=== PATIENT | female | born 1955 | race Caucasian/White ===

== ENCOUNTER 2017-03-28 07:53 | Day surgery (SDC) | payer BC ==
[2017-03-23 14:51] VITALS: BMI 18.4
[2017-03-28] MEDS ORDERED: PROPOFOL 20 ML ONE ×2 (08:07)
[2017-03-28] MEDS ORDERED: LIDOCAINE HCL/PF 2% SDV 5ML VIAL ONE (08:08)
[2017-03-28 10:14] VITALS: BP 110/65; PULSE 70; TEMP 98.1
== END 2017-03-28 10:15 | disposition home or self-care (01) ==
LOC: FASU-ENDO 07:53
PROVIDERS: ATTEND Internal Medicine Gastroenterology
PROC: 0DJD8ZZ Inspection of Lower Intestinal Tract, Via Natural or Artificial Opening Endoscopic (ICD-10-PCS; principal; 2017-03-28 09:23)
DX: Z12.11 Encounter for screening for malignant neoplasm of colon (principal)

== ENCOUNTER 2020-11-21 09:59 | Emergency (ER) | payer BC ==
[2020-11-21 10:06] VITALS: BP 154/89; PULSE 81; TEMP 97.8; BMI 24.7
[2020-11-21] MEDS ORDERED: ACETAMINOPHEN 500 MG TABLET (FP) PO ONE (10:13)
[2020-11-21] MEDS ORDERED: ACETAMINOPHEN 325 MG TABLET (FP) ONE (10:17)
== END 2020-11-21 11:13 | disposition home or self-care (01) ==
LOC: FER 09:59
PROC: 2W3DX1Z Immobilization of Left Lower Arm using Splint (ICD-10-PCS; principal; 2020-11-21)
DX: S52.502A Unspecified fracture of the lower end of left radius, initial encounter for closed fracture (principal)
CPT/HCPCS: 73110-TC-LT-FY; 73130-TC-LT-FY; 99283-25

== ENCOUNTER 2020-11-24 12:56 | Inpatient (IN) | payer BC, OTHER ==
[2020-11-24] MEDS ORDERED: ONDANSETRON 4 MG/2 ML VIAL IVPUSH ONE (13:11)
[2020-11-24] MEDS ORDERED: SODIUM CHLORIDE 1,000 ML IV STA (13:11)
[2020-11-24] MEDS ORDERED: AZTREONAM 1 GM in DEXTROSE 5%-WATER - 50 ML IVPB ONE (13:18)
[2020-11-24] MEDS ORDERED: ONDANSETRON 4 MG/2 ML VIAL ONE (13:20)
[2020-11-24 13:54] LABS: BASO % 1.5 % (0-2.0); EOS % 0.5 % (0-4.5); HEMATOCRIT 36.7 % (32.4-45.2); HEMOGLOBIN 12.2 GM/dl (10.7-15.3); LYMPH % 9.3 % (8-40); MCH 31.4 pg (25.7-33.7); MCHC 33.3 g/dl (32.0-36.0); MEAN CELL VOLUME 94.3 fl (80-96); MEAN PLT VOLUME 8.8 fl (7.5-11.1); MONO % 8.1 % (3.8-10.2); NEUT % 80.6 % (42.8-82.8); PLATELET COUNT 239 10^3/uL (134-434); WHITE BLOOD COUNT 4.6 K/mm3 (4.0-10.8)
[2020-11-24 14:07] LABS: ALBUMIN 3.9 g/dl (3.4-5.0); ALK PHOS 84 U/L (45-117); ANION GAP 12 MMOL/L (8-16); BILIRUBIN,TOTAL 0.8 mg/dl (0.2-1); CALCIUM 8.5 mg/dl (8.5-10); CHLORIDE 88 mmol/L (98-107); CO2 17 mmol/L (21-32); CREATININE 0.9 mg/dl (0.55-1.3); GLUCOSE,RANDOM 93 mg/dl (74-106); SGOT/AST 32 U/L (15-37); SGPT/ALT 21 U/L (13-61); TOT PROT 6.6 g/dl (6.4-8.2)
[2020-11-24 14:10] LABS: SODIUM 117 mmol/L (136-145)
[2020-11-24 14:52] LABS: EPITHELIAL CELLS MANY /hpf
[2020-11-24] MEDS ORDERED: SODIUM CHLORIDE 1,000 ML IV SCH ×2 (15:00→16:57)
[2020-11-24 15:22] LABS: CREATININE, URINE RANDOM 171.5 mg/dL
[2020-11-24 15:23] LABS: LIPASE 103 U/L (73-393)
[2020-11-24 15:26] LABS: ALBUMIN 3.7 g/dl (3.4-5.0); CALCIUM 8.4 mg/dl (8.5-10); CREATININE 0.9 mg/dl (0.55-1.3); TOT PROT 6.1 g/dl (6.4-8.2)
[2020-11-24] MEDS ORDERED: SODIUM BICARBONATE 8.4% 50 MEQ/50 ML DISP.SYRIN IVPUSH ONE (16:57)
[2020-11-24 17:12] LABS: OSMOLALITY,SERUM 249 mosm/kg (278-305)
[2020-11-24] MEDS ORDERED: SODIUM BICARBONATE 8.4% 50 MEQ/50 ML VIAL ONE (17:46)
[2020-11-24] MEDS ORDERED: metoPROLOL SUCCINATE 25 MG TAB.SR.24H (FP) ONE (17:46)
[2020-11-24] MEDS ORDERED: amLODIPine BESYLATE 5 MG TABLET (FP) ONE (17:46)
[2020-11-24] MEDS: amLODIPine BESYLATE 2.5 MG TABLET (FP) PO SCH (17:55)
[2020-11-24] MEDS: metoPROLOL SUCCINATE 25 MG TAB.SR.24H (FP) PO SCH (17:55)
[2020-11-24] MEDS ORDERED: ACETAMINOPHEN 325 MG TABLET (FP) ONE (18:35)
[2020-11-24] MEDS ORDERED: ACETAMINOPHEN 325 MG TABLET (FP) PO ONE (18:36)
[2020-11-24 20:20] LABS: CREATININE 0.9 mg/dl (0.55-1.3)
[2020-11-24] MEDS ORDERED: DEXTROSE 5%-WATER - 1,000 ML IV SCH (21:00)
[2020-11-24] MEDS ORDERED: SODIUM BICARBONATE 650 MG TABLET PO SCH (22:00)
[2020-11-24] MEDS: AZTREONAM 2 GM in DEXTROSE 5%-WATER 100 ML IVPB SCH (22:40)
[2020-11-24 23:02] VITALS: BMI 19.5
[2020-11-25] MEDS: AZTREONAM 2 GM in DEXTROSE 5%-WATER 100 ML IVPB SCH ×4 (05:59→15:11)
[2020-11-25 07:54] LABS: HEMATOCRIT 35.6 % (32.4-45.2); HEMOGLOBIN 11.9 GM/dl (10.7-15.3); MCH 31.9 pg (25.7-33.7); MCHC 33.5 g/dl (32.0-36.0); MEAN CELL VOLUME 95.4 fl (80-96); MEAN PLT VOLUME 9.1 fl (7.5-11.1); PLATELET COUNT 200 10^3/uL (134-434); RBC 3.73 M/mm3 (3.60-5.2); RDW 12.6 % (11.6-15.6); WHITE BLOOD COUNT 2.9 K/mm3 (4.0-10.8)
[2020-11-25 08:05] LABS: ADD RBC MORPHOLOGY YES
[2020-11-25 08:13] LABS: ALBUMIN 3.4 g/dl (3.4-5.0); BILIRUBIN,TOTAL 0.6 mg/dl (0.2-1); CALCIUM 8.4 mg/dl (8.5-10); CREATININE 0.8 mg/dl (0.55-1.3); TOT PROT 5.8 g/dl (6.4-8.2)
[2020-11-25 09:28] LABS: PLATELET ESTIMATE ADEQUATE
[2020-11-25] MEDS ORDERED: DEXTROSE 5%-WATER - 1,000 ML IV SCH ×4 (09:29→21:59)
[2020-11-25] MEDS ORDERED: amLODIPine BESYLATE 2.5 MG TABLET (FP) PO SCH ×2 (10:32→18:00)
[2020-11-25] MEDS ORDERED: metoPROLOL SUCCINATE 25 MG TAB.SR.24H (FP) PO SCH ×2 (10:32→18:00)
[2020-11-25] MEDS: amLODIPine BESYLATE 2.5 MG TABLET (FP) PO SCH (10:35)
[2020-11-25] MEDS: metoPROLOL SUCCINATE 25 MG TAB.SR.24H (FP) PO SCH (10:35)
[2020-11-25] MEDS: ACETAMINOPHEN 325 MG TABLET (FP) PO PRN ×2 (11:50→16:59)
[2020-11-25] MEDS: ENOXAPARIN NA (PORCINE) 40 MG/0.4 ML DISP.SYRIN SQ SCH ×2 (11:50→14:05)
[2020-11-25] MEDS ORDERED: PT OWN MED DRAWER 7, Y5N ONE (13:56)
[2020-11-25 16:00] LABS: CALCIUM 8.5 mg/dl (8.5-10); CREATININE 0.8 mg/dl (0.55-1.3)
[2020-11-25] MEDS ORDERED: ONDANSETRON 4 MG/2 ML VIAL IVPUSH PRN (16:59)
[2020-11-26] MEDS: ACETAMINOPHEN 325 MG TABLET (FP) PO PRN (00:05)
[2020-11-26] MEDS ORDERED: AZTREONAM 1 GM VIAL (RESTRICTED TO ID) ONE ×2 (00:14→09:11)
[2020-11-26] MEDS ORDERED: DEXTROSE 5%-WATER - 50 ML IVPB ONE ×2 (00:14→09:11)
[2020-11-26] MEDS: AZTREONAM 1 GM in DEXTROSE 5%-WATER - 50 ML IVPB SCH ×2 (01:32→09:38)
[2020-11-26 08:23] LABS: BASO % 1.4 % (0-2.0); EOS % 3.9 % (0-4.5); HEMATOCRIT 36.3 % (32.4-45.2); HEMOGLOBIN 11.9 GM/dl (10.7-15.3); MCH 31.3 pg (25.7-33.7); MCHC 32.8 g/dl (32.0-36.0); MEAN CELL VOLUME 95.5 fl (80-96); MEAN PLT VOLUME 8.9 fl (7.5-11.1); NEUT % 52.7 % (42.8-82.8); PLATELET COUNT 208 10^3/uL (134-434); RBC 3.79 M/mm3 (3.60-5.2); WHITE BLOOD COUNT 2.7 K/mm3 (4.0-10.8)
[2020-11-26 08:38] LABS: ALBUMIN 3.4 g/dl (3.4-5.0); BILIRUBIN,TOTAL 0.5 mg/dl (0.2-1); CALCIUM 8.6 mg/dl (8.5-10); CREATININE 0.7 mg/dl (0.55-1.3); TOT PROT 5.7 g/dl (6.4-8.2)
[2020-11-26] MEDS: ENOXAPARIN NA (PORCINE) 40 MG/0.4 ML DISP.SYRIN SQ SCH (09:39)
[2020-11-26 14:37] VITALS: BP 116/61; PULSE 80; TEMP 98.5
== END 2020-11-26 16:17 | disposition home or self-care (01) | DRG 391 ==
LOC: FER 12:56 → FM/S 14:48
PROVIDERS: ADMIT Internal Medicine Geriatric Medicine; ATTEND Nurse Practitioner Acute Care
DX: K57.92 Diverticulitis of intestine, part unspecified, without perforation or abscess without bleeding (principal); G93.41 Metabolic encephalopathy; E87.1 Hypo-osmolality and hyponatremia; S52.502A Unspecified fracture of the lower end of left radius, initial encounter for closed fracture; I51.81 Takotsubo syndrome; E87.2 Acidosis; I10 Essential (primary) hypertension; W18.11XA Fall from or off toilet without subsequent striking against object, initial encounter; Y92.098 Other place in other non-institutional residence as the place of occurrence of the external cause
CPT/HCPCS: 36415; 80048; 80053; 81003; 81015; 82436; 82570; 83605; 83690; 83735; 83930; 83935; 84133; 84156; 84300; 84484; 85025; 93005; 97116-GP; 97161-GP; 99285-25; C9803; U0003; U0005

== ENCOUNTER 2020-12-03 06:13 | Day surgery (SDC) | payer BC ==
[2020-12-01 17:09] VITALS: BMI 19.9
[2020-12-03] MEDS ORDERED: BUPIVACAINE HCL 50 ML ONE (07:19)
[2020-12-03] MEDS ORDERED: LIDOCAINE HCL 2% (20ML MULTI-DOSE VIAL) ONE (07:36)
[2020-12-03] MEDS ORDERED: ROPIVACAINE HCL 0.5% 30ML VIAL ONE (07:40)
[2020-12-03] MEDS ORDERED: MIDAZOLAM HCL 2 MG/2 ML SINGLE DOSE VIAL ONE (07:40)
[2020-12-03] MEDS ORDERED: PROPOFOL 20 ML ONE ×4 (07:46)
[2020-12-03 10:17] VITALS: TEMP 97.7
[2020-12-03 10:20] VITALS: BP 125/73; PULSE 72
[2020-12-03] MEDS ORDERED: GUM MASTIC/STORAX/MSAL/ALCOHOL 1 DRP DROPSBTL MC ONE (10:40)
[2020-12-03] MEDS ORDERED: ONDANSETRON 4 MG/2 ML VIAL IVPUSH PRN (11:37)
[2020-12-03] MEDS ORDERED: oxyCODONE HCL 5 MG TABLET PO PRN (11:37)
[2020-12-03] MEDS ORDERED: LACTATED RINGERS SOLUTION 1,000 ML IV SCH (11:45)
== END 2020-12-03 10:20 | disposition home or self-care (01) ==
LOC: FASU 06:13
PROVIDERS: ATTEND Orthopaedic Surgery Hand Surgery
PROC: 0LN60ZZ Release Left Lower Arm and Wrist Tendon, Open Approach (ICD-10-PCS; 2020-12-03)
PROC: 0PSJ04Z Reposition Left Radius with Internal Fixation Device, Open Approach (ICD-10-PCS; principal; 2020-12-03 08:31)
DX: S52.572A Other intraarticular fracture of lower end of left radius, initial encounter for closed fracture (principal); X58.XXXA Exposure to other specified factors, initial encounter; Y93.9 Activity, unspecified; Y92.9 Unspecified place or not applicable
CPT/HCPCS: 25290; 25609; C1713; 76000-TC-FY

== ENCOUNTER 2021-08-25 21:07 | Observation (INO) | payer BC, OTHER ==
[2021-08-25 22:33] LABS: ALBUMIN 3.7 g/dl (3.4-5.0); BILIRUBIN,TOTAL 0.6 mg/dl (0.2-1); CALCIUM 9.6 mg/dl (8.5-10); CREATININE 0.8 mg/dl (0.55-1.3); TOT PROT 6.1 g/dl (6.4-8.2)
[2021-08-26 00:11] LABS: BASO % 0.7 % (0-2.0); EOS % 6.5 % (0-4.5); HEMATOCRIT 37.2 % (32.4-45.2); HEMOGLOBIN 12.7 GM/dL (10.7-15.3); LYMPH % 23.1 % (8-40); MCH 32.2 pg (25.7-33.7); MEAN CELL VOLUME 94.7 fl (80-96); MONO % 7.7 % (3.8-10.2); PLATELET COUNT 192 10^3/uL (134-434); RBC 3.92 M/mm3 (3.60-5.2); RDW 12.2 % (11.6-15.6); WHITE BLOOD COUNT 6.2 K/mm3 (4.0-10.0)
[2021-08-26 00:23] LABS: N-TERMINAL BNP 1494.8 pg/ml (5-125)
[2021-08-26] MEDS ORDERED: ASPIRIN 325 MG TABLET PO ONE (00:36)
[2021-08-26] MEDS ORDERED: ASPIRIN 325 MG TABLET ONE (01:07)
[2021-08-26 02:43] VITALS: BMI 21.7
[2021-08-26 07:42] LABS: INR 1.03 (0.83-1.09); PROTHROMBIN TIME (PATIENT) 11.8 SEC (9.7-13.0)
[2021-08-26 07:44] LABS: ACTIVATED PTT 29.6 SECONDS (25.2-36.5)
[2021-08-26 08:03] LABS: CREATININE 0.7 mg/dl (0.55-1.3); PHOSPHOROUS 4.3 mg/dl (2.5-4.9)
[2021-08-26] MEDS ORDERED: CLOPIDOGREL BISULFATE 300 MG TABLET PO ONE (10:00)
[2021-08-26] MEDS ORDERED: amLODIPine BESYLATE 2.5 MG TABLET (FP) PO SCH (10:00)
[2021-08-26] MEDS ORDERED: ENOXAPARIN NA (PORCINE) 40 MG/0.4 ML DISP.SYRIN SQ SCH (10:00)
[2021-08-26] MEDS ORDERED: metoPROLOL SUCCINATE 25 MG TAB.SR.24H (FP) PO SCH (10:00)
[2021-08-26 10:01] LABS: BASO % 1.2 % (0-2.0); EOS % 10.7 % (0-4.5); HEMATOCRIT 34.5 % (32.4-45.2); LYMPH % 27.2 % (8-40); MCH 33.2 pg (25.7-33.7); MCHC 34.9 g/dl (32.0-36.0); MEAN CELL VOLUME 95.2 fl (80-96); MEAN PLT VOLUME 9.1 fl (7.5-11.1); MONO % 8.4 % (3.8-10.2); NEUT % 52.5 % (42.8-82.8); PLATELET COUNT 167 10^3/uL (134-434); RBC 3.63 M/mm3 (3.60-5.2); RDW 12.5 % (11.6-15.6)
[2021-08-26] MEDS ORDERED: ENOXAPARIN NA (PORCINE) 60 MG/0.6 ML DISP.SYRIN SQ SCH (10:15)
[2021-08-26] MEDS ORDERED: ATORVASTATIN CA 80 MG TABLET (FP) PO SCH (10:15)
[2021-08-26 13:43] VITALS: BP 98/62; PULSE 94; TEMP 98.7
[2021-08-27] MEDS ORDERED: CLOPIDOGREL BISULFATE 75 MG TABLET (FP) PO SCH (10:00)
[2021-08-27] MEDS ORDERED: ASPIRIN 81 MG CHEWABLE TABLETS PO SCH (10:00)
== END 2021-08-26 13:51 | disposition short-term general hospital (02) ==
LOC: FER 21:07 → FM/S 08-26 01:17
PROVIDERS: ADMIT Hospitalist; ATTEND Nurse Practitioner Acute Care
PROC: 3E023GC Introduction of Other Therapeutic Substance into Muscle, Percutaneous Approach (ICD-10-PCS; principal; 2021-08-26)
DX: I10 Essential (primary) hypertension (principal); I47.1 Supraventricular tachycardia; I42.9 Cardiomyopathy, unspecified; Z90.79 Acquired absence of other genital organ(s); Z88.0 Allergy status to penicillin; Z88.8 Allergy status to other drugs, medicaments and biological substances; K57.92 Diverticulitis of intestine, part unspecified, without perforation or abscess without bleeding; Z87.891 Personal history of nicotine dependence
CPT/HCPCS: 36415; 71046-TC-FY; 80048; 80053; 82550; 83735; 83880; 84100; 84484; 85025; 85610; 85730; 93005; 96372; 99285-25; C9803-CS; G0378; U0003; U0005